=== PATIENT | male | born 1950 | race Caucasian/White ===

== ENCOUNTER 2017-12-10 20:06 | Observation (INO) | payer MEDICARE, OTHER ==
[~2017-12-10] VITALS: Ht 177.8 cm; Wt 66.0 kg
[~2017-12-10 20:06] MED LIST: PRIL20TA2 PO; SUMA50 PO
[2017-12-10 20:07] VITALS: BP 160/80; PULSE 112; RESP 16; TEMP 97.6; O2SAT 98
--- NOTE | 2017-12-10 21:33 | PD ---
HPI Chief Complaint: Cardiac Complaint Time Seen by Provider: 21:31 Travel History International Travel<30 days: No Contact w/Intl Traveler<30days: No Traveled to known affect area: No History of Present Illness HPI 67-year-old male came to the emergency room with his with history of sudden onset palpitations, nausea and not feeling well at around 5:00. Patient says he has been working outdoors the whole day. He thought that he probably overdid it and got dehydrated. After he came home he drank lots of water along with salt. He thought maybe his blood pressure had gone down. Patient is not on any medications and says he is healthy otherwise. He does have a primary care doctor and sees him once every year. Patient denies having any chest pain or headache. He appeared to be in distress when I went to see him. His vital signs were stable in the room. Heart rate was in the 90s. However when patient arrived in triage his heart rate was in 1 teens. The syncopal episode. He has never had these kind of symptoms in the past. [facility] Past Medical History Narrative Medical List of his past medical, surgical, social and family history is reviewed from the nursing note. Cardiovascular Problems: No Diminished Hearing: No Immunizations Current: Yes Migraines: Yes (HAS NOT HAD ONE IN AWHILE) Past Surgical History Cholecystectomy: Yes Social History Alcohol Use: No Tobacco Use: No Substance Use: No Allergies-Medications (Allergen,Severity, Reaction): Coded Allergies: iodine (Unverified Allergy, Severe, "SHOCK", 12/10/17) potassium iodide (Unverified Allergy, Severe, "SHOCK", 12/10/17) povidone-iodine (Unverified Allergy, Severe, "SHOCK", 12/10/17) sodium iodide (Unverified Allergy, Severe, "SHOCK", 12/10/17) sodium iodide (Unverified Allergy, Severe, "SHOCK", 12/10/17) Comments List of his allergies reviewed from the nursing note. Reported Meds & Prescriptions Reported Meds & Active Scripts Active Meclizine 25 (Meclizine HCl) 25 Mg Tab 25 Mg PO Q8H PRN Reported Prilosec Otc (Omeprazole Magnesium) 20 Mg Tab 20 Mg PO DAILY Imitrex 50 Mg Tab (Sumatriptan Succinate) 50 Mg Tab 50 Mg PO DAILYPRN Narrative Medication List of his home medications reviewed from the nursing note. Review of Systems Except as stated in HPI: all other systems reviewed are Neg Cardiovascular: Positive: Palpitations Gastrointestinal: Positive: Nausea Physical Exam Narrative GENERAL: Awake, alert, moderate distress, anxious SKIN: Focused skin assessment warm/dry. Pale HEAD: Atraumatic. Normocephalic. EYES: Pupils equal and round. No scleral icterus. No injection or drainage. ENT: No nasal bleeding or discharge. Dry mucous membrane NECK: Trachea midline. No JVD. CARDIOVASCULAR: Regular rate and rhythm. No murmur appreciated. RESPIRATORY: No accessory muscle use. Clear to auscultation. Breath sounds equal bilaterally. GASTROINTESTINAL: Abdomen soft, non-tender, nondistended. Hepatic and splenic margins not palpable. MUSCULOSKELETAL: No obvious deformities. No clubbing. No cyanosis. No edema. NEUROLOGICAL: Awake and alert. No obvious cranial nerve deficits. Motor grossly within normal limits. Normal speech. PSYCHIATRIC: Appropriate mood and affect; insight and judgment normal. Data Data Last Documented VS Vital Signs Date Time Temp Pulse Resp B/P (MAP) Pulse Ox O2 Delivery O2 Flow Rate FiO2 12/10/17 22:06 96 18 163/89 (113) 12/10/17 20:07 97.6 98 Room Air Orders Orders Electrocardiogram (12/10/17 21:42) Basic Metabolic Panel (Bmp) (12/10/17 21:42) Complete Blood Count With Diff (12/10/17 21:42) Magnesium (Mg) (12/10/17 21:42) Prothrombin Time / Inr (Pt) (12/10/17 21:42) Troponin I (12/10/17 21:42) Chest, Single Ap (12/10/17 21:42) Ecg Monitoring (12/10/17 21:42) Bilateral Bp Monitoring (12/10/17 21:42) Iv Access Insert/Monitor (12/10/17 21:42) Oximetry (12/10/17 21:42) Oxygen Administration (12/10/17 21:42) Sodium Chloride 0.9% Flush (Ns Flush) (12/10/17 21:45) Sodium Chlor 0.9% 1000 Ml Inj (Ns 1000 M (12/10/17 21:45) Orthostatic Vital Signs (12/10/17 21:45) Ondansetron Inj (Zofran Inj) (12/10/17 23:00) Urinalysis - C+S If Indicated (12/10/17 23:00) Sodium Chlor 0.9% 1000 Ml Inj (Ns 1000 M (12/10/17 23:30) Meclizine (Antivert) (12/10/17 23:45) Ct Brain W/O Iv Contrast(Rout) (12/10/17 ) Lorazepam Inj (Ativan Inj) (12/11/17 00:00) Mra Brain W/O Contrast (Cow) (12/11/17 ) Mra Carotids W Contrast (12/11/17 ) Mri Brain W/O Contrast (12/11/17 ) Admit Order (Ed Use Only) (12/11/17 01:14) Labs Laboratory Tests Test 12/10/17 22:00 12/10/17 23:10 White Blood Count 13.8 TH/MM3 Red Blood Count 5.01 MIL/MM3 Hemoglobin 15.4 GM/DL Hematocrit 44.0 % Mean Corpuscular Volume 87.8 FL Mean Corpuscular Hemoglobin 30.7 PG Mean Corpuscular Hemoglobin Concent 35.0 % Red Cell Distribution Width 12.4 % Platelet Count 262 TH/MM3 Mean Platelet Volume 8.4 FL Neutrophils (%) (Auto) 90.8 % Lymphocytes (%) (Auto) 6.5 % Monocytes (%) (Auto) 2.3 % Eosinophils (%) (Auto) 0.0 % Basophils (%) (Auto) 0.4 % Neutrophils # (Auto) 12.6 TH/MM3 Lymphocytes # (Auto) 0.9 TH/MM3 Monocytes # (Auto) 0.3 TH/MM3 Eosinophils # (Auto) 0.0 TH/MM3 Basophils # (Auto) 0.1 TH/MM3 CBC Comment DIFF FINAL Differential Comment Prothrombin Time 11.4 SEC Prothromb Time International Ratio 1.1 RATIO Blood Urea Nitrogen 19 MG/DL Creatinine 1.23 MG/DL Random Glucose 110 MG/DL Calcium Level 9.5 MG/DL Magnesium Level 1.8 MG/DL Sodium Level 128 MEQ/L Potassium Level 3.8 MEQ/L Chloride Level 90 MEQ/L Carbon Dioxide Level 24.8 MEQ/L Anion Gap 13 MEQ/L Estimat Glomerular Filtration Rate 59 ML/MIN Troponin I LESS THAN 0.02 NG/ML Urine Color LIGHT-YELLOW Urine Turbidity CLEAR Urine pH 7.5 Urine Specific [place] 1.009 Urine Protein NEG mg/dL Urine Glucose (UA) NEG mg/dL Urine Ketones 40 mg/dL Urine Occult Blood TRACE Urine Nitrite NEG Urine Bilirubin NEG Urine Urobilinogen LESS THAN 2.0 MG/DL Urine Leukocyte Esterase NEG Urine RBC 3 /hpf Urine WBC LESS THAN 1 /hpf Microscopic Urinalysis Comment CULT NOT INDICATED MDM Medical Decision Making Medical Screen Exam Complete: Yes Emergency Medical Condition: Yes Medical Record Reviewed: Yes Interpretation(s) Twelve-lead EKG was reviewed by me. Normal sinus rhythm, normal axis, nonspecific ST-T wave changes. Heart rate of 91 bpm. Differential Diagnosis Dehydration, electrolyte abnormality, ACS Narrative Course 11:44 PM blood test results of back and patient's white blood cell count is on the higher side. Patient also has mild to moderate hyponatremia and hypochloremia. I gave him 2 L of IV fluid bolus. I went to reassess him in that him know about the test results. Patient told me that he was not feeling any better and his dizziness is still there. At this point I was concerned with the dizziness complain because that was new to me. I pointed out to him that he had not mention about dizziness either to me at the triage nurse. He said all his symptoms started at 5 PM including the dizziness. Right now he describes the dizziness as a woozy sensation anytime he turns his head either side. I've ordered some meclizine and ordered a CT scan of his head. If the head CT is negative I'll order and MRI and admit him especially if his symptoms do not resolve since at that point by concern is posterior circulation CVA. Orthostatic vital signs were within acceptable limits. Patient did get nauseous when he stood up her which I had ordered Zofran. [address] of the head is negative. I have ordered an MRI and MRA. I would like to admit the patient for intractable dizziness and nausea. Procedures EKG Prior to Arrival: No Diagnosis Primary Impression: Palpitations Additional Impressions: Hyponatremia Dizziness Intractable nausea and vomiting Qualified Codes: R11.2 - Nausea with vomiting, unspecified Admitting Information Admitting Physician Requests: Admit Scripts Meclizine HCl (Meclizine 25) 25 Mg Tab 25 MG PO Q8H Y for DIZZINESS, #20 TAB Prov: Jane Hunter PA-C 12/11/17 Adeola Ferguson MD Dec 10, 2017 21:33
[2017-12-10] MEDS ORDERED: SODIUM CHLOR 0.9% 1000 ML INJ 1,000 ML IV ONE ×2 (21:45→23:30)
[2017-12-10 22:04] VITALS: BP 149/77; RESP 18
[2017-12-10 22:05] VITALS: BP 154/81; RESP 18
--- NOTE | 2017-12-10 22:05 | RADRPT ---
EXAM DATE/TIME: 12/10/2017 21:55 [facility] COMPARISON: No previous studies available for comparison. INDICATIONS : Chest Pain and Dizziness MEDICAL HISTORY : Migranes SURGICAL HISTORY : Cholecystectomy. ENCOUNTER: Initial ACUITY: 1 day PAIN SCORE: 6/10 LOCATION: chest FINDINGS: A single view of the chest demonstrates the lungs to be symmetrically aerated without evidence of mas s, infiltrate or effusion. The cardiomediastinal contours are unremarkable. Osseous structures are intact. CONCLUSION: The lungs are clear. Blas Nava MD on December 10, 2017 at 22:03 Board Certified Radiologist. This report was verified electronically.
[2017-12-10 22:06] VITALS: BP 163/89; RESP 18
[2017-12-10] MEDS: SODIUM CHLORIDE 0.9% FLUSH 10 ML FLUSH IVF PRN ×2 (22:15→23:31)
[2017-12-10 22:18] LABS: AUTOMATED NEUTROPHIL # 12.6 TH/MM3 (1.8-7.7); BASOPHIL # 0.1 TH/MM3 (0-0.2); BASOPHIL % 0.4 % (0.0-2.0); HEMOGLOBIN 15.4 GM/DL (13.0-17.0); LYMPH % 6.5 % (9.0-44.0); LYMPHOCYTE # 0.9 TH/MM3 (1.0-4.8); MEAN CELL VOLUME 87.8 FL (80.0-100.0); MEAN CORPUSCULAR HEMOGLOBIN 30.7 PG (27.0-34.0); MEAN PLATELET VOLUME 8.4 FL (7.0-11.0); MONO % 2.3 % (0.0-8.0); MONOCYTE # 0.3 TH/MM3 (0-0.9); NEUT % 90.8 % (16.0-70.0); PLATELET COUNT 262 TH/MM3 (150-450); RED BLOOD COUNT 5.01 MIL/MM3 (4.50-5.90); RED CELL DISTRIBUTION WIDTH 12.4 % (11.6-17.2); WHITE BLOOD COUNT 13.8 TH/MM3 (4.0-11.0)
[2017-12-10 22:28] LABS: INTERNATIONAL NORMALIZED RATIO 1.1 RATIO; PROTHROMBIN TIME - PATIENT 11.4 SEC (9.8-11.6)
[2017-12-10 22:38] LABS: BICARBONATE 24.8 MEQ/L (21.0-32.0); BLOOD UREA NITROGEN 19 MG/DL (7-18); CALCIUM 9.5 MG/DL (8.5-10.1); CHLORIDE 90 MEQ/L (98-107); CREATININE 1.23 MG/DL (0.60-1.30); GLOMERULAR FILTRATION RATE 59 ML/MIN (>89); GLUCOSE,RANDOM 110 MG/DL (74-106); MAGNESIUM 1.8 MG/DL (1.5-2.5); SODIUM (NA) 128 MEQ/L (136-145)
[2017-12-10 22:42] LABS: TROPONIN I LESS THAN 0.02 NG/ML (0.02-0.05)
[2017-12-10] MEDS ORDERED: ONDANSETRON HCL 4 MG/2 ML VIAL IV PUSH ONE (23:00)
[2017-12-10 23:22] LABS: BILIRUBIN, URINE NEG (NEG); BLOOD, URINE TRACE (NEG); GLUCOSE,URINE NEG (NEG); KETONE, URINE 40 mg/dL (NEG); NITRITE,URINE NEG (NEG); PH, URINE 7.5 (5.0-8.5); URINE COLOR LIGHT-YELLOW (YELLW/STRAW); URINE LEUKOCYTE ESTERASE NEG (NEG)
[2017-12-10] MEDS ORDERED: MECLIZINE HCL 25 MG TAB PO ONE (23:45)
[2017-12-11] VITALS (9 sets, daily range): BP systolic 118–135; BP diastolic 64–71; PULSE 81–97; RESP 16–21; TEMP 96.1–97.9; O2SAT 97–98
[2017-12-11] MEDS ORDERED: LORazepam 2 MG/ML VIAL IV PUSH ONE
[2017-12-11] MEDS: SODIUM CHLORIDE 0.9% FLUSH 10 ML FLUSH IVF PRN (00:11)
--- NOTE | 2017-12-11 00:39 | RADRPT ---
EXAM DATE/TIME: 12/11/2017 00:25 [facility] COMPARISON: No previous studies available for comparison. INDICATIONS : Dizziness. RADIATION DOSE: 56.35 CTDIvol (mGy) MEDICAL HISTORY : None SURGICAL HISTORY : Cholecystectomy. ENCOUNTER: Initial ACUITY: 1 day PAIN SCALE: 0/10 LOCATION: cranial TECHNIQUE: Multiple contiguous axial images were obtained of the head. Using automated exposure control and adj ustment of the mA and/or kV according to patient size, radiation dose was kept as low as reasonably a chievable to obtain optimal diagnostic quality images. DICOM format image data is available electro nically for review and comparison. FINDINGS: CEREBRUM: The ventricles are normal for age. No evidence of midline shift, mass lesion, hemorrhage or acute in farction. No extra-axial fluid collections are seen. POSTERIOR FOSSA: The cerebellum and brainstem are intact. The 4th ventricle is midline. The cerebellopontine angle i s unremarkable. EXTRACRANIAL: The visualized portion of the orbits is intact. SKULL: The calvaria is intact. No evidence of skull fracture. CONCLUSION: Normal examination. Jose Dyer MD on December 11, 2017 at 0:37 Board Certified Radiologist. This report was verified electronically.
[2017-12-11] MEDS ORDERED: LACTULOSE SYRUP 20 GM/30 ML CUP PO PRN (01:15)
[2017-12-11] MEDS ORDERED: ACETAMINOPHEN 325 MG TAB PO PRN (01:15)
[2017-12-11] MEDS ORDERED: ACETAMINOPHEN/HYDROcodone 325 MG/10 MG TAB PO PRN (01:15)
[2017-12-11] MEDS ORDERED: ONDANSETRON HCL 4 MG/2 ML VIAL IVP PRN (01:15)
[2017-12-11] MEDS ORDERED: SENNOSIDES 8.6 MG TAB PO PRN (01:15)
[2017-12-11] MEDS ORDERED: BISACODYL 10 MG SUPP RECTAL PRN (01:15)
[2017-12-11] MEDS ORDERED: MAGNESIUM HYDROXIDE SUSP 30 ML CUP PO PRN (01:15)
[2017-12-11] MEDS ORDERED: SODIUM CHLORIDE 0.9% FLUSH 10 ML FLUSH IV FLUSH PRN (01:15)
[2017-12-11] MEDS ORDERED: ACETAMINOPHEN/HYDROcodone 325 MG/5 MG TAB PO PRN (01:15)
[2017-12-11] MEDS ORDERED: GADODIAMIDE PF 287 MG/ML 20 ML VIAL (for RAD MRI) IVCONTRAST ONE (01:39)
--- NOTE | 2017-12-11 01:44 | RADRPT ---
EXAM DATE/TIME: 12/11/2017 01:25 [facility] COMPARISON: No previous studies available for comparison. INDICATIONS : Dizziness. CVA. MEDICAL HISTORY : None. SURGICAL HISTORY : Cholecystectomy. ENCOUNTER: Subsequent ACUITY: 1 day PAIN SCORE: 0/10 LOCATION: head. Please note a normal MRA of the brain does not entirely exclude the possibility of a small aneurysm, nor the possibility of distal intracranial vessel disease. TECHNIQUE: 3D time of flight MRA was performed. Source images, multiplanar STS MIP, and 3D volume MIP reconstru ctions were reviewed. FINDINGS: There is excellent visualization of the major intracranial arteries out to the second-order branch ve ssels. There is no evidence for aneurysm, vessel truncation or stenosis, and no evidence for vascula r malformation. origin of the right posterior cerebral arteries. CONCLUSION: Normal examination. Jose Dyer MD on December 11, 2017 at 1:40 Board Certified Radiologist. This report was verified electronically.
--- NOTE | 2017-12-11 02:12 | RADRPT ---
EXAM DATE/TIME: 12/11/2017 01:25 [facility] COMPARISON: MRA CAROTIDS W CONTRAST, December 11, 2017, 1:25. MRA BRAIN W/O CONTRAST, December 11, 2017, 1:25. CT BRAIN W/O CONTRAST, December 11, 2017, 0:25. INDICATIONS : Dizziness. CVA. MEDICAL HISTORY : None. SURGICAL HISTORY : Cholecystectomy. ENCOUNTER: Subsequent ACUITY: 1 day PAIN SCORE: 0/10 LOCATION: head. TECHNIQUE: Multiplanar, multisequence MRI of the brain was performed without contrast. FINDINGS: CEREBRUM: The ventricles are normal for age. No evidence of midline shift, mass lesion, hemorrhage or acute in farction. No extraaxial fluid collections are seen. The pituitary gland and suprasellar cistern are normal in configuration. WHITE MATTER: No significant signal abnormalities are seen in the white matter. POSTERIOR FOSSA: The cerebellum and brainstem are intact. The 4th ventricle is midline. The cerebellopontine angle is unremarkable. The cerebellar tonsils are normal in position. DIFFUSION IMAGING: No focal areas of restricted diffusion are seen. No evidence of acute infarction. EXTRACRANIAL: The visualized portions of the orbits and paranasal sinuses are unremarkable. CONCLUSION: Normal examination. Jose Dyer MD on December 11, 2017 at 2:10 Board Certified Radiologist. This report was verified electronically.
--- NOTE | 2017-12-11 02:13 | RADRPT ---
EXAM DATE/TIME: 12/11/2017 01:25 [facility] COMPARISON: MRI BRAIN W/O CONTRAST, December 11, 2017, 1:25. MRA BRAIN W/O CONTRAST, December 11, 2017, 1:25. C T BRAIN W/O CONTRAST, December 11, 2017, 0:25. INDICATIONS : Stenosis. CONTRAST: 20 cc Omniscan (gadodiamide) IV MEDICAL HISTORY : None. SURGICAL HISTORY : Cholecystectomy. ENCOUNTER: Subsequent ACUITY: 1 day PAIN SCORE: 0/10 LOCATION: neck. Percent stenosis is calculated using the diameter of the stenotic region over the diameter of the nor mal distal internal carotid artery. TECHNIQUE: Bolus infused MRA of the extracranial circulation was performed using a neurovascular coil. Post pro cessing was performed including rotating subvolume maximum intensity projections of each carotid troy ry, rotating full volume maximum intensity projections of both carotid arteries, sagittal and coronal sliding thin slab reformations of each carotid artery, and left oblique sliding thin slab reformatio n through the aortic arch to include the origin of the arch branch vessels. FINDINGS: AORTIC ARCH: There is a three vessel origin of the great vessels from the aorta. No evidence of ostial narrowing. RIGHT CAROTID: The common carotid artery is intact. The carotid bulb has a normal configuration without ulceration or narrowing. The internal carotid artery lumen is smooth without stenosis. The external carotid ar dwayne is intact. LEFT CAROTID: The common carotid artery is intact. The carotid bulb has a normal configuration without ulceration or narrowing. The internal carotid artery lumen is smooth without stenosis. The external carotid ar dwayne is intact. VERTEBRALS: The vertebral arteries have a symmetric diameter. No stenotic lesions are seen. CONCLUSION: Normal examination for a patient of this age. Jose Dyer MD on December 11, 2017 at 2:10 Board Certified Radiologist. This report was verified electronically.
[2017-12-11] MEDS: SODIUM CHLOR 0.9% 1000 ML INJ 1,000 ML IV SCH ×3 (02:26→21:11)
[2017-12-11] MEDS ORDERED: MECLIZINE HCL 25 MG TAB PO PRN (04:00)
[2017-12-11] MEDS ORDERED: TRIMETHOBENZAMIDE INJ 200 MG/2 ML VIAL IM PRN (04:00)
--- NOTE | 2017-12-11 04:10 | HHI.HP ---
[facility] Isabel Shin MD Admission Diagnosis dizziness, intractable nausea, dehydration Diagnoses: (1) Dizziness Diagnosis: Principal (2) Hyponatremia Diagnosis: Principal (3) Intractable nausea and vomiting Diagnosis: Principal Travel History International Travel<30 Days: No Contact w/Intl Traveler <30 Da: No Traveled to Known Affected Are: No History of Present Illness A 67-year-old male with a PMH of HTN and Migraine who presented to ER with complaints of nausea, vomiting and dizziness. States he was outside all day and later developed dizziness, which he thought was related to being dehydrated. Drank salt water thinking his BP was low. Denies chest pain, SOB or fever/chills. On arrival, BP 154. 81, HR 99, O2 sat 100% on RA WBC 13.8. Na 128. GFR 59. Troponin negative. UA negative. CT Head normal. CXR with no acute findings. S/p IVF and Meclizine in ER w/ persistent symptoms. ER physician concerned for possible CVA, MRI/MRA pending. Review of Systems Except as stated in HPI: all other systems reviewed are Neg ROS: 14 point review of systems otherwise negative. Past Family Social History Past Medical History PMH: HTN and Migraine Past Surgical History PAST SURGICAL HISTORY: Cholecystectomy Allergies: Coded Allergies: iodine (Unverified Allergy, Severe, "SHOCK", 12/10/17) potassium iodide (Unverified Allergy, Severe, "SHOCK", 12/10/17) povidone-iodine (Unverified Allergy, Severe, "SHOCK", 12/10/17) sodium iodide (Unverified Allergy, Severe, "SHOCK", 12/10/17) sodium iodide (Unverified Allergy, Severe, "SHOCK", 12/10/17) Family History PAST FAMILY HISTORY: Reviewed. No h/o DM or CAD Social History PAST SOCIAL HISTORY: Negative for alcohol, tobacco or drugs. Physical Exam Vital Signs Vital Signs Date Time Temp Pulse Resp B/P (MAP) Pulse Ox O2 Delivery O2 Flow Rate FiO2 12/11/17 03:27 97.4 95 20 122/69 (86) 98 12/11/17 02:33 12/11/17 02:26 96 Room Air 12/11/17 02:10 97 16 135/69 (91) 98 Room Air 12/10/17 22:06 96 18 163/89 (113) 12/10/17 22:05 99 18 154/81 (105) 12/10/17 22:04 97 18 149/77 (101) 12/10/17 20:07 97.6 112 16 160/80 (106) 98 Room Air Physical Exam PE: GENERAL: Middle-aged male in no acute distress, appears mildly weak. HEENT: PERRLA, EOMI. No scleral icterus or conjunctival pallor. No lid lag or facial droop. CARDIOVASCULAR: Regular rate and rhythm. No obvious murmurs to auscultation. No chest tenderness to palpation. RESPIRATORY: No obvious rhonchi or wheezing. Clear to auscultation. Breath sounds equal bilaterally. GASTROINTESTINAL: Abdomen soft, non-tender, nondistended. BS normal. MUSCULOSKELETAL: Extremities without clubbing, cyanosis, or edema. No obvious deformities. NEUROLOGICAL: Awake, alert and oriented x4. No focal neurologic deficits. Moving both upper and lower extremities spontaneously. Laboratory Laboratory Tests Test 12/10/17 22:00 12/10/17 23:10 White Blood Count 13.8 Red Blood Count 5.01 Hemoglobin 15.4 Hematocrit 44.0 Mean Corpuscular Volume 87.8 Mean Corpuscular Hemoglobin 30.7 Mean Corpuscular Hemoglobin Concent 35.0 Red Cell Distribution Width 12.4 Platelet Count 262 Mean Platelet Volume 8.4 Neutrophils (%) (Auto) 90.8 Lymphocytes (%) (Auto) 6.5 Monocytes (%) (Auto) 2.3 Eosinophils (%) (Auto) 0.0 Basophils (%) (Auto) 0.4 Neutrophils # (Auto) 12.6 Lymphocytes # (Auto) 0.9 Monocytes # (Auto) 0.3 Eosinophils # (Auto) 0.0 Basophils # (Auto) 0.1 CBC Comment DIFF FINAL Differential Comment Prothrombin Time 11.4 Prothromb Time International Ratio 1.1 Blood Urea Nitrogen 19 Creatinine 1.23 Random Glucose 110 Calcium Level 9.5 Magnesium Level 1.8 Sodium Level 128 Potassium Level 3.8 Chloride Level 90 Carbon Dioxide Level 24.8 Anion Gap 13 Estimat Glomerular Filtration Rate 59 Troponin I LESS THAN 0.02 Urine Color LIGHT-YELLOW Urine Turbidity CLEAR Urine pH 7.5 Urine Specific [place] 1.009 Urine Protein NEG Urine Glucose (UA) NEG Urine Ketones 40 Urine Occult Blood TRACE Urine Nitrite NEG Urine Bilirubin NEG Urine Urobilinogen LESS THAN 2.0 Urine Leukocyte Esterase NEG Urine RBC 3 Urine WBC LESS THAN 1 Microscopic Urinalysis Comment CULT NOT INDICATED Result Diagram: 12/10/17219912/10/172199 Caprini VTE Risk Assessment Caprini VTE Risk Assessment: No/Low Risk (score <= 1) Caprini Risk Assessment Model Point Value = 1 Point Value = 2 Point Value = 3 Point Value = 5 Age 41-60 Minor surgery BMI > 25 kg/m2 Swollen legs Varicose veins or History of unexplained or recurrent spontaneous Oral contraceptives or hormone replacement Sepsis (< 1 month) Serious lung disease, including pneumonia (< 1 month) Abnormal pulmonary function Acute myocardial infarction Congestive heart failure (< 1 month) History of inflammatory bowel disease Medical patient at bed rest Age 61-74 Arthroscopic surgery Major open surgery (> 45 min) Laparoscopic surgery (> 45 min) Malignancy Confined to bed (> 72 hours) Immobilizing plaster cast Central venous access Age >= 75 History of VTE Family history of VTE Factor V Leiden Prothrombin [id number] Lupus anticoagulant Anticardiolipin antibodies Elevated serum homocysteine Heparin-induced thrombocytopenia Other congenital or acquired thrombophilia Stroke (< 1 month) Elective arthroplasty Hip, pelvis, or leg fracture Acute spinal cord injury (< 1 month) Prophylaxis Regimen Total Risk Factor Score Risk Level Prophylaxis Regimen 0-1 Low Early ambulation 2 Moderate Order ONE of the following: *Sequential Compression Device (SCD) *Heparin 5000 units SQ BID 3-4 Higher Order ONE of the following medications: *Heparin 5000 units SQ TID *Enoxaparin/Lovenox 40 mg SQ daily (WT < 150 kg, CrCl > 30 mL/min) *Enoxaparin/Lovenox 30 mg SQ daily (WT < 150 kg, CrCl > 10-29 mL/min) *Enoxaparin/Lovenox 30 mg SQ BID (WT < 150 kg, CrCl > 30 mL/min) AND/OR *Sequential Compression Device (SCD) 5 or more Highest Order ONE of the following medications: *Heparin 5000 units SQ TID (Preferred with Epidurals) *Enoxaparin/Lovenox 40 mg SQ daily (WT < 150 kg, CrCl > 30 mL/min) *Enoxaparin/Lovenox 30 mg SQ daily (WT < 150 kg, CrCl > 10-29 mL/min) *Enoxaparin/Lovenox 30 mg SQ BID (WT < 150 kg, CrCl > 30 mL/min) AND *Sequential Compression Device (SCD) Assessment and Plan Problem List: (1) Dizziness ICD Code: R42 - Dizziness and giddiness Status: Acute (2) Intractable nausea and vomiting ICD Code: R11.2 - Nausea with vomiting, unspecified Status: Acute (3) Hyponatremia ICD Code: E87.1 - Hypo-osmolality and hyponatremia Status: Acute Assessment and Plan A/P: 1. Dizziness: acute onset of dizziness, associated w/ nausea/vomiting, s/p Meclizine and IVF w/ minimal improvement. CT Head w/ no acute findings, images reviewed by me. Concern for possible CVA, ER physician ordered MRI/MRA, pending , will follow results. IVF for hydration, U/a negative for UTI. Trop negative. Will admit for Observation, place on telemetry, check serial cardiac enzymes to eval for possible ischemia. 2. Intractable NV: IVF, analgesics/antiemetics as needed. Meclizine prn. 3. Hyponatremia: Na 128, likely secondary to dehydration from nausea/ vomiting. IVF for hydration, repeat labs in am. 4. DVT Prophylaxis: SCD/Teds 5. Social work for DC planning as needed. 6. Case discussed at length with ER physician, labs/imaging/records were reviewed by me. Problem Qualifiers (1) Intractable nausea and vomiting: Qualified Codes: R11.2 - Nausea with vomiting, unspecified Denise Blackman MD Dec 11, 2017 04:10
[2017-12-11 08:33] LABS: AUTOMATED NEUTROPHIL # 5.6 TH/MM3 (1.8-7.7); BASOPHIL % 0.1 % (0.0-2.0); EOSINOPHIL % 0.4 % (0.0-4.0); HEMATOCRIT 40.8 % (39.0-51.0); HEMOGLOBIN 14.2 GM/DL (13.0-17.0); LYMPH % 22.3 % (9.0-44.0); LYMPHOCYTE # 1.8 TH/MM3 (1.0-4.8); MEAN CELL VOLUME 89.2 FL (80.0-100.0); MEAN CORPUSCULAR HEMOGLOBIN 31.1 PG (27.0-34.0); MEAN CORPUSCULAR HGB CONC 34.9 % (32.0-36.0); MONO % 6.8 % (0.0-8.0); MONOCYTE # 0.5 TH/MM3 (0-0.9); NEUT % 70.4 % (16.0-70.0); PLATELET COUNT 216 TH/MM3 (150-450); RED BLOOD COUNT 4.57 MIL/MM3 (4.50-5.90); RED CELL DISTRIBUTION WIDTH 12.7 % (11.6-17.2); WHITE BLOOD COUNT 7.9 TH/MM3 (4.0-11.0)
[2017-12-11 08:56] LABS: ALBUMIN 3.5 GM/DL (3.4-5.0); ALKALINE PHOSPHATASE 81 U/L (45-117); ALT (GPT) 19 U/L (12-78); AST (GOT) 19 U/L (15-37); BICARBONATE 25.5 MEQ/L (21.0-32.0); BLOOD UREA NITROGEN 13 MG/DL (7-18); CALCIUM 8.5 MG/DL (8.5-10.1); CHLORIDE 101 MEQ/L (98-107); CREATININE 0.95 MG/DL (0.60-1.30); GLOMERULAR FILTRATION RATE 80 ML/MIN (>89); GLUCOSE,RANDOM 76 MG/DL (74-106); SODIUM (NA) 134 MEQ/L (136-145); TOTAL BILIRUBIN ADULT 1.3 MG/DL (0.2-1.0); TOTAL PROTEIN 6.5 GM/DL (6.4-8.2); TROPONIN I LESS THAN 0.02 NG/ML (0.02-0.05)
[2017-12-11] MEDS: DOCUSATE SODIUM 50 MG/SENNA 8.6 MG TAB PO SCH ×2 (09:11→21:00)
[2017-12-11] MEDS: SODIUM CHLORIDE 0.9% FLUSH 10 ML FLUSH IV FLUSH SCH ×2 (09:12→21:00)
--- NOTE | 2017-12-11 09:21 | HHI.PR ---
Subjective Remarks Follow up for dizziness and nausea. The patient explains he was working outside all day in the yard and he hasn't done that in a long time. He states he just got carried away. He admits to not drinking much water. He became nauseous and very dizzy but never had any vomiting. Today he feels much better, no further dizziness or nausea. He believes he just became very dehydrated. Denies any chest pain, palpitations, or shortness of breath. Objective Vitals Vital Signs Date Time Temp Pulse Resp B/P (MAP) Pulse Ox O2 Delivery O2 Flow Rate FiO2 12/11/17 07:47 97.4 89 21 120/69 (86) 98 12/11/17 04:34 87 12/11/17 03:27 97.4 95 20 122/69 (86) 98 12/11/17 02:33 12/11/17 02:26 96 Room Air 12/11/17 02:10 97 16 135/69 (91) 98 Room Air 12/10/17 22:06 96 18 163/89 (113) 12/10/17 22:05 99 18 154/81 (105) 12/10/17 22:04 97 18 149/77 (101) 12/10/17 20:07 97.6 112 16 160/80 (106) 98 Room Air I/O 12/10/17 12/10/17 12/10/17 12/11/17 12/11/17 12/11/17 07:00 15:00 23:00 07:00 15:00 23:00 Intake Total 2000 ml Output Total 800 ml Balance 1200 ml Intake IV Total 2000 ml Output Urine Total 800 ml Result Diagram: 12/11/17 0806 12/11/17 0806 Imaging Last Impressions Neck Magnetic Resonance Angiography 12/11/17 0000 Signed Impressions: Service Date/Time: Monday, December 11, 2017 01:25 - CONCLUSION: Normal examination for a patient of this age. Jose Dyer MD Head Magnetic Resonance Angiography 12/11/17 0000 Signed Impressions: Service Date/Time: Monday, December 11, 2017 01:25 - CONCLUSION: Normal examination. Jose Dyer MD Brain MRI 12/11/17 0000 Signed Impressions: Service Date/Time: Monday, December 11, 2017 01:25 - CONCLUSION: Normal examination. Jose Dyer MD Chest X-Ray 12/10/17 2142 Signed Impressions: Service Date/Time: Sunday, December 10, 2017 21:55 - CONCLUSION: The lungs are clear. Blas Nava MD Head CT 12/10/17 0000 Signed Impressions: Service Date/Time: Monday, December 11, 2017 00:25 - CONCLUSION: Normal examination. Jose Dyer MD Objective Remarks GENERAL: Well-nourished, well-developed male patient in NAD. SKIN: Warm and dry. No rash. HEENT: Normocephalic. Atraumatic. Pupils equal and round. No nystagmus noted. Mucous membranes pink and moist. NECK: Supple. Trachea midline. CARDIOVASCULAR: Regular rate and rhythm. S1, S2 noted. No murmur appreciated. RESPIRATORY: No accessory muscle use. Clear to auscultation. Breath sounds equal bilaterally. GASTROINTESTINAL: Abdomen soft, non-tender, nondistended. Normoactive bowel sounds x4. MUSCULOSKELETAL: No obvious deformities. Extremities without clubbing, cyanosis , or edema. NEUROLOGICAL: Awake and alert. No obvious cranial nerve deficits. Motor grossly within normal limits. Normal speech. PSYCHIATRIC: Appropriate mood and affect; insight and judgment normal. Medications and IVs Current Medications Medications (Trade) Dose Ordered Sig/Aroldo Route Start Time Stop Time Status Last Admin Sodium Chloride 1,000 ml @ 100 mls/hr Q10H IV 12/11/17 01:11 12/11/17 02:26 (NS Flush) 2 ml UNSCH PRN IV FLUSH 12/11/17 01:15 (NS Flush) 2 ml BID IV FLUSH 12/11/17 09:00 (Zofran Inj) 4 mg Q6H PRN IVP 12/11/17 01:15 (Tylenol) 650 mg Q6H PRN PO 12/11/17 01:15 (Defiance 5-325 Mg) 1 tab Q4H PRN PO 12/11/17 01:15 (Defiance 10-325 Mg) 1 tab Q4H PRN PO 12/11/17 01:15 (Yolanda-Colace) 1 tab BID PO 12/11/17 09:00 (Milk Of Magnesia Liq) 30 ml Q12H PRN PO 12/11/17 01:15 (Senokot) 17.2 mg Q12H PRN PO 12/11/17 01:15 (Dulcolax Supp) 10 mg DAILY PRN RECTAL 12/11/17 01:15 (Lactulose Liq) 30 ml DAILY PRN PO 12/11/17 01:15 (Antivert) 25 mg Q8H PRN PO 12/11/17 04:00 (Tigan Inj) 200 mg Q6H PRN IM 12/11/17 04:00 A/P Problem List: (1) Dizziness ICD Code: R42 - Dizziness and giddiness Status: Acute (2) Intractable nausea and vomiting ICD Code: R11.2 - Nausea with vomiting, unspecified Status: Acute (3) Hyponatremia ICD Code: E87.1 - Hypo-osmolality and hyponatremia Status: Acute Assessment and Plan 67-year-old male with a PMH of HTN and Migraine who presented to ER with complaints of nausea and dizziness. Dizziness: acute onset of dizziness, associated w/ nausea, no vomiting. Suspect vertigo vs dehydration. Patient working outside all day in the heat. ER concerned for posterior circulation stroke. -CT Head images reviewed, no acute findings -Brain MRI/MRA and Neck MRA all unremarkable -U/a negative for UTI. -Troponin negative x2, EKG without acute ischemic changes, no complaints of chest pain -Check echocardiogram -Given IVF hydration -Monitor on telemetry, no acute findings -Consult PT -Symptoms resolved, suspect secondary to dehydration and hyponatremia, will give prescription for meclizine prn if symptom return Intractable Nausea: Suspect secondary to above. -Given IVF and IV Zofran -Symptoms resolved. Hyponatremia: Na 128, likely secondary to dehydration. -Given IVF for hydration -Repeat labs show improvement with Na 134 -Encouraged to continue oral hydration DVT Prophylaxis: SCD/Teds Discharge Planning Plan to discharge today after PT eval and if echocardiogram is unremarkable. Discussed with RN. Discharge patient to home Condition on discharge: Improved Regular Diet as tolerated Ad Abbie activity Rx written: meclizine prn Follow-up with primary care physician within 1 week Problem Qualifiers (1) Intractable nausea and vomiting: Qualified Codes: R11.2 - Nausea with vomiting, unspecified Jane Hunter PA-C Dec 11, 2017 9:21 am
[2017-12-11] MEDS ORDERED: MECL1TAB42 PO (09:25)
--- NOTE | 2017-12-11 09:25 | HHI.DCPOC ---
Discharge Care Plan Diagnosis: (1) Dizziness (2) Hyponatremia (3) Dehydration Goals to Promote Your Health * To prevent worsening of your condition and complications * To maintain your health at the optimal level Directions to Meet Your Goals Take your medications as prescribed Follow your dietary instruction Follow activity as directed Keep your appointments as scheduled Take your immunizations and boosters as scheduled If your symptoms worsen call your PCP, if no PCP go to Urgent Care Center or Emergency Room Smoking is Dangerous to Your Health. Avoid second hand smoke Call the 24-hour hour crisis hotline for domestic abuse at Jane Hunter PA-C Dec 11, 2017 9:25 am
--- NOTE | 2017-12-11 11:10 | EKG ---
Date Performed: 12/11/2017 Time Performed: 06:02:00 PTAGE: 67 years EKG: Sinus rhythm INCOMPLETE RIGHT BUNDLE BRANCH BLOCK SEPTAL MYOCARDIAL INFARCTION ABNORMAL ECG Since the prior vladimir ng, there has been no significant change PREVIOUS TRACING : 12/11/2017 06.01 DOCTOR: Osmin Peña Interpretating Date/Time 12/11/2017 11:04:42
--- NOTE | 2017-12-11 11:10 | EKG ---
Date Performed: 12/10/2017 Time Performed: 21:57:36 PTAGE: 67 years EKG: Sinus rhythm POSSIBLE LEFT ATRIAL ENLARGEMENT INCOMPLETE RIGHT BUNDLE BRANCH BLOCK BORDERLINE ECG Since the prior tracing, there has been no significant change PREVIOUS TRACING : 12/10/2017 21.56 DOCTOR: Osmin Peña Interpretating Date/Time 12/12/2017 08:29:55
[2017-12-12 00:22] VITALS: BP 117/67; PULSE 82; RESP 18; TEMP 96.6; O2SAT 97
[2017-12-12 04:13] VITALS: BP 126/64; PULSE 80; RESP 18; TEMP 97.3; O2SAT 96
[2017-12-12 07:43] VITALS: BP 130/65; PULSE 88; RESP 21; TEMP 97.5; O2SAT 98
[2017-12-12 08:16] VITALS: PULSE 82
[2017-12-12] MEDS: SODIUM CHLOR 0.9% 1000 ML INJ 1,000 ML IV SCH (08:30)
[2017-12-12] MEDS: DOCUSATE SODIUM 50 MG/SENNA 8.6 MG TAB PO SCH (08:30)
[2017-12-12] MEDS: SODIUM CHLORIDE 0.9% FLUSH 10 ML FLUSH IV FLUSH SCH (08:30)
--- NOTE | 2017-12-12 11:28 | ECHRPT ---
Indication: CONCLUSIONS Normal left ventricular size. The left ventricular systolic function is normal with an estimated ejection fraction in the range of 55-60%. [id number] mitral valve regurgitation. There is trace tricuspid valve regurgitation. The estimated pulmonary arterial pressure is 30 mmHg. BP: / HR: Rhythm: MEASUREMENTS (Male / Female) Normal Values Technical Quality:Fair 2D ECHO LV Diastolic Diameter PLAX 4.0 cm 4.2 - 5.9 / 3.9 - 5.3 cm LV Systolic Diameter PLAX 3.0 cm IVS Diastolic Thickness 1.0 cm 0.6 - 1.0 / 0.6 - 0.9 cm LVPW Diastolic Thickness 1.1 cm 0.6 - 1.0 / 0.6 - 0.9 cm LV Relative Wall Thickness 0.5 RV Internal Dim ED PLAX 2.2 cm M-MODE Aortic Root Diameter MM 2.3 cm LA Systolic Diameter MM 2.3 cm LA Ao Ratio MM 1.0 AV Cusp Separation MM 1.8 cm DOPPLER Mitral E Point Velocity 64.7 cm/s Mitral A Point Velocity 62.7 cm/s Mitral E to A Ratio 1.0 LV E' Lateral Velocity 7.2 cm/s Mitral E to LV E' Lateral Ratio 9.0 LV E' Septal Velocity 6.9 cm/s Mitral E to LV E' Septal Ratio 9.3 TR Peak Velocity 225.0 cm/s TR Peak Gradient 20.3 mmHg Right Atrial Pressure 10.0 mmHg Pulmonary Artery Systolic Pressu 30.3 mmHg Right Ventricular Systolic Press 30.3 mmHg FINDINGS LEFT VENTRICLE Normal left ventricular size. The left ventricular systolic function is normal with an estimated ejection fraction in the range of 55-60%. RIGHT VENTRICLE Normal right ventricular size and systolic function. LEFT ATRIUM The left atrial size is normal. RIGHT ATRIUM The right atrial size is normal. ATRIAL SEPTUM Normal atrial septal thickness without atrial level shunting by limited color doppler interrogation. AORTA The aortic root and proximal ascending aorta are normal in size on limited imaging. MITRAL VALVE Structurally normal mitral valve. [id number] mitral valve regurgitation. AORTIC VALVE Trileaflet aortic valve. No aortic valve regurgitation. No aortic valve stenosis. TRICUSPID VALVE Structurally normal tricuspid valve. There is trace tricuspid valve regurgitation. The estimated pulmonary arterial pressure is 30.3 mmHg. PULMONARY VALVE No pulmonary valve regurgitation or stenosis. VESSELS The inferior vena cava is normal in size. PERICARDIUM No pericardial effusion. Bill Yanez MD, FACC Edited by: [employer] Legal Clerk (Electronically Signed) Final Date:11 December 2017 18:59 Amended: 12 December 2017 11:28
--- NOTE | 2017-12-12 15:54 | HHI.DS ---
Discharge Summary Admission Date Dec 11, 2017 at 01:15 Discharge Date: Dec 12, 2017 Admitting Diagnosis dizziness, intractable nausea, dehydration (1) Dizziness ICD Code: R42 - Dizziness and giddiness Status: Acute (2) Intractable nausea and vomiting ICD Code: R11.2 - Nausea with vomiting, unspecified Status: Acute (3) Hyponatremia ICD Code: E87.1 - Hypo-osmolality and hyponatremia Status: Acute Procedures No invasive procedures Brief History - From Admission A 67-year-old male with a PMH of HTN and Migraine who presented to ER with complaints of nausea, vomiting and dizziness. States he was outside all day and later developed dizziness, which he thought was related to being dehydrated. Drank salt water thinking his BP was low. Denies chest pain, SOB or fever/chills. On arrival, BP 154. 81, HR 99, O2 sat 100% on RA WBC 13.8. Na 128. GFR 59. Troponin negative. UA negative. CT Head normal. CXR with no acute findings. S/p IVF and Meclizine in ER w/ persistent symptoms. ER physician concerned for possible CVA, MRI/MRA pending. CBC/BMP: 12/11/17 0806 12/11/17 0806 Significant Findings Laboratory Tests Test 12/10/17 22:00 12/10/17 23:10 12/11/17 08:06 12/11/17 12:00 White Blood Count 13.8 TH/MM3 (4.0-11.0) Neutrophils (%) (Auto) 90.8 % (16.0-70.0) 70.4 % (16.0-70.0) Lymphocytes (%) (Auto) 6.5 % (9.0-44.0) Neutrophils # (Auto) 12.6 TH/MM3 (1.8-7.7) Lymphocytes # (Auto) 0.9 TH/MM3 (1.0-4.8) Blood Urea Nitrogen 19 MG/DL (7-18) Random Glucose 110 MG/DL (74-106) Sodium Level 128 MEQ/L (136-145) 134 MEQ/L (136-145) Chloride Level 90 MEQ/L (98-107) Estimat Glomerular Filtration Rate 59 ML/MIN (>89) 80 ML/MIN (>89) Troponin I LESS THAN 0.02 NG/ML LESS THAN 0.02 NG/ML LESS THAN 0.02 NG/ML Urine Ketones 40 mg/dL (NEG) Urine Occult Blood TRACE (NEG) Total Bilirubin 1.3 MG/DL (0.2-1.0) Imaging Last Impressions Neck Magnetic Resonance Angiography 12/11/17 0000 Signed Impressions: Service Date/Time: Monday, December 11, 2017 01:25 - CONCLUSION: Normal examination for a patient of this age. Jose Dyer MD Head Magnetic Resonance Angiography 12/11/17 0000 Signed Impressions: Service Date/Time: Monday, December 11, 2017 01:25 - CONCLUSION: Normal examination. Jose Dyer MD Brain MRI 12/11/17 0000 Signed Impressions: Service Date/Time: Monday, December 11, 2017 01:25 - CONCLUSION: Normal examination. Jose Dyer MD Chest X-Ray 12/10/172141 Signed Impressions: Service Date/Time: Sunday, December 10, 2017 21:55 - CONCLUSION: The lungs are clear. Blas Nava MD Head CT 12/10/17 0000 Signed Impressions: Service Date/Time: Monday, December 11, 2017 00:25 - CONCLUSION: Normal examination. Jose Dyer MD PE at Discharge GENERAL: Patient sitting up in bed. Appears comfortable. Eating breakfast. Breathing comfortably. Moves all extremities. No acute distress. Pt update on day of discharge Patient says he is feeling well. Would like to go home. Denies any chest pain or shortness of breath. Echocardiogram reviewed with the patient. Hospital Course CT brain with no acute findings. MRI, MRA brain, MRA neck with no acute findings. EKG without any ischemic changes, troponins negative 2, and patient without complaint of chest pain. Echocardiogram with trace to mild mitral regurgitation, normal ejection fraction. Please see report. Sodium improved with IV hydration. Dizziness improved with meclizine. Hyponatremia likely secondary to dehydration. Patient will need to follow with primary care, avoid strenuous or prolonged effort. For problem based summary from most recent progress note, please see below. 67-year-old male with a PMH of HTN and Migraine who presented to ER with complaints of nausea and dizziness. Dizziness: acute onset of dizziness, associated w/ nausea, no vomiting. Suspect vertigo vs dehydration. Patient working outside all day in the heat. ER concerned for posterior circulation stroke. -CT Head images reviewed, no acute findings -Brain MRI/MRA and Neck MRA all unremarkable -U/a negative for UTI. -Troponin negative x2, EKG without acute ischemic changes, no complaints of chest pain -Check echocardiogram -Given IVF hydration -Monitor on telemetry, no acute findings -Consult PT -Symptoms resolved, suspect secondary to dehydration and hyponatremia, will give prescription for meclizine prn if symptom return Intractable Nausea: Suspect secondary to above. -Given IVF and IV Zofran -Symptoms resolved. Hyponatremia: Na 128, likely secondary to dehydration. -Given IVF for hydration -Repeat labs show improvement with Na 134 -Encouraged to continue oral hydration DVT Prophylaxis: SCD/Teds Discharge Planning Plan to discharge today after PT eval and if echocardiogram is unremarkable. Discussed with RN. Discharge patient to home Condition on discharge: Improved Regular Diet as tolerated Ad Abbie activity Rx written: meclizine prn Follow-up with primary care physician within 1 week Pt Condition on Discharge: Stable Discharge Disposition: Discharge Home Discharge Time: <= 30 minutes Discharge Instructions DIET: Follow Instructions for: As Tolerated, No Restrictions Activities you can perform: Regular-No Restrictions Follow up Referrals: PCP Follow-up - 1 Week with Isabel Shin MD New Orders: Physical Therapy - 2-3 Days New Medications: Meclizine HCl (Meclizine 25) 25 Mg Tab 25 MG PO Q8H PRN for DIZZINESS, #20 TAB Continued Medications: Omeprazole Magnesium (Prilosec Otc) 20 Mg Tab 20 MG PO DAILY Sumatriptan Succinate (Imitrex 50 Mg Tab) 50 Mg Tab 50 MG PO DAILYPRN Josh Roach MD Dec 12, 2017 15:54
--- NOTE | 2017-12-12 19:26 | EKG ---
Date Performed: 12/11/2017 Time Performed: 13:28:33 PTAGE: 67 years EKG: Sinus rhythm INCOMPLETE RIGHT BUNDLE BRANCH BLOCK SEPTAL MYOCARDIAL INFARCTION ABNORMAL ECG Since the prior vladimir ng, there has been no significant change PREVIOUS TRACING : 12/11/2017 06.02 DOCTOR: Antony Buck Interpretating Date/Time 12/12/2017 19:25:16
== END 2017-12-12 09:56 | disposition home or self-care (01) ==
LOC: NEPC 20:06 → NEDA 12-11 01:15 → NEPHCDU 12-11 02:28
PROVIDERS: ADMIT Internal Medicine; ATTEND Internal Medicine
DX: R42 Dizziness and giddiness (principal); R11.2 Nausea with vomiting, unspecified; E87.1 Hypo-osmolality and hyponatremia; E86.0 Dehydration; I10 Essential (primary) hypertension; I45.10 Unspecified right bundle-branch block; R94.31 Abnormal electrocardiogram [ECG] [EKG]; R00.2 Palpitations; R55 Syncope and collapse; E87.8 Other disorders of electrolyte and fluid balance, not elsewhere classified
CPT/HCPCS: 70450; 70544; 70548; 70551; 71045; 80048; 80053; 81001; 83735; 84484; 85025; 85610; 93005; 93306; 96361; 96374; 96375; 97161; 99285; A9579; G0378; G8987; G8988; J2060; J2405; J7030